=== PATIENT | female | born 1965 | race Caucasian/White ===

== ENCOUNTER 2017-01-26 14:41 | Emergency (ER) | payer BC ==
[2017-01-26 16:26] VITALS: BP 158/89; PULSE 88; RESP 16; TEMP 98.1; O2SAT 96
--- NOTE | 2017-01-26 17:43 | UCPHY ---
H & P Patient Type: New Smoking Status: Never smoked Time Seen by Provider: 01/26/17 16:58 HPI/ROS: CHIEF COMPLAINT: Left elbow and left shoulder pain HISTORY OF PRESENT ILLNESS: 51-year-old female presents emergency department complaining of left shoulder and left elbow pain after a fall 1 week ago. Patient tripped and fell onto her left elbow. She had pain and swelling in this elbow that has improved, patient reports pain in her elbow and her shoulder with range of motion. She denies numbness or tingling in her arm, no head strike, no neck pain. She denies other complaints. (Cierra Franz) Physical Exam: GEN: Awake, alert, oriented, no acute distress RESP: nl resp effort MSK: Left elbow with full extension and flexion, pronation and supination, small area of ecchymosis over medial epicondyle, tenderness to palpation to olecranon with no swelling, no fluctuance, 2+ radial pulses, sensation intact to light touch, no left wrist pain, left shoulder with decreased active forward flexion, tenderness to palpation to AC joint. SKIN: [place], warm, dry, no break in exposed skin (Cierra Franz) Constitutional: Initial Vital Signs Temperature (C) 36.7 C 01/26/17 16:20 Heart Rate 88 01/26/17 16:20 Respiratory Rate 16 01/26/17 16:20 Blood Pressure 158/89 H 01/26/17 16:20 O2 Sat (%) 96 01/26/17 16:20 O2 Delivery Mode Room Air Allergies/Adverse Reactions: No Known Allergies Allergy (Verified 08/26/13 19:42) Home Medications: Medication Instructions Recorded LISINOPRIL 07/19/10 Lantus 07/19/10 Prozac 07/19/10 MDM/Departure - MDM Diagnostics: Left elbow x-ray independently reviewed by - No fracture Left shoulder x-ray independently reviewed by - No fracture (Cierra Franz) Medications Given: Discontinued Medications Hydrocodone Bitart/Acetaminophen ([place] 5/325mg Prepack#6) 1 btl TAKEHOME EDNOW ONE Stop: 01/26/17 18:06 Last Admin: 01/26/17 18:31 Dose: 1 btl ED Course/Re-evaluation: The patient was evaluated and managed by the nurse practitioner, iCerra Franz My co-signature indicates that I have reviewed this chart and I agree with the findings and plan of care as documented. I am the secondary supervising physician. (Cathi Le) - Depart Disposition: Home, Routine, Self-Care Clinical Impression: Left elbow contusion Qualifiers: Encounter type: initial encounter Qualified Code(s): S50.02XA - Contusion of left elbow, initial encounter Sprain of left acromioclavicular joint Qualifiers: Encounter type: initial encounter Qualified Code(s): S43.52XA - Sprain of left acromioclavicular joint, initial encounter Condition: Good Instructions: Hydrocodone/Acetaminophen (By mouth), Acromioclavicular Separation (ED), Contusion in Adults (ED) Additional Instructions: Take 600 mg of ibuprofen every 8 hours with food for 5 days, wear sling for comfort, come out of sling several times a day to straighten and bend your elbow , gentle [id number] exercises with your shoulder. Follow up the orthopedist for pain that is not improving in the next 5-7 days, return sooner for any worsening symptoms, new symptoms or concerns. Referrals: TALON BERKOWITZ [Primary Care Provider] - As per Instructions Neo Wynn MD [Medical Doctor] - As per Instructions (Orthopedist on-call) - PQRS PQRS Measurement: na (Cierra Franz)
[2017-01-26] MEDS ORDERED: HYDROCOD/APAP 5/325 PREPACK#6 BTL TAKEHOME ONE (18:05)
== END 2017-01-26 18:32 | disposition home or self-care (01) ==
LOC: CED 14:41
DX: S50.02XA Contusion of left elbow, initial encounter (principal); S43.52XA Sprain of left acromioclavicular joint, initial encounter; W19.XXXA Unspecified fall, initial encounter
CPT/HCPCS: 73030-PO; 73080-PO; G0463-PO

== ENCOUNTER 2018-04-24 20:55 | Emergency (ER) | payer BC ==
--- NOTE | 2018-04-24 21:18 | EDPHY ---
H & P Stated Complaint: c/o bilateral lower leg swelling x 2 days, states swelling less today Time Seen by Provider: 04/24/18 21:13 HPI/ROS: Chief Complaint: Leg swelling HPI: 52-year-old diabetic woman presenting with 2 days of leg swelling. Patient states that Friday her legs became quite swollen. They were equal bilaterally. Swelling persisted yesterday. It is a little bit better today but is continuing. No chest pain or shortness of breath. No recent weight loss or weight gain. She called her primary care physician who told her to come to the emergency department for evaluation of her heart. She sleeps on 1 pillow at night and this is not changed for many years. No dyspnea on exertion. She says her blood sugars have been in the 120s to 150s range recently without any recent changes. No recent travel. No cough. No chest pain or palpitations. No increased thirst or urination. No heat or cold intolerance. ROS: 10 point Review of Systems is negative except as noted in the HPI. PMH: Diabetes Social History: No smoking, no alcohol, no recreational drug use Family History: non-contributory Physical Exam: Gen: Awake, Alert, No Distress HEENT: Nose: no rhinorrhea Eyes: PERRLA, EOMI Mouth: Moist mucosa Neck: Supple, no JVD Chest: nontender, lungs clear to auscultation Heart: S1, S2 normal, no murmur Abd: Soft, non-tender, no guarding Back: no CVA tenderness, no midline tenderness Ext: 2+ nonpitting edema bilaterally to the mid calf, mild bilateral tenderness. Skin: no rash Neuro: CN II-XII intact, Sensation grossly intact, Strength 5/5 in bilateral upper and lower extremities - Personal History LMP (Females 10-55): Post Menopausal Current Tetanus Diphtheria and Acellular Pertussis (TDAP): Yes Tetanus Vaccine Date: 2011 - Medical/Surgical History Hx Asthma: No Hx Chronic Respiratory Disease: No Hx Diabetes: Yes Hx Cardiac Disease: No Hx Renal Disease: No Hx Cirrhosis: No Hx Alcoholism: No Hx HIV/AIDS: No Hx Splenectomy or Spleen Trauma: No Other PMH: DM 2 - Social History Smoking Status: Never smoked Constitutional: Initial Vital Signs Temperature (C) 36.6 C 04/24/18 21:06 Heart Rate 91 04/24/18 21:06 Respiratory Rate 16 04/24/18 21:06 Blood Pressure 158/112 H 04/24/18 21:06 O2 Sat (%) 94 04/24/18 21:06 O2 Delivery Mode Room Air Allergies/Adverse Reactions: No Known Allergies Allergy (Verified 08/26/13 19:42) Home Medications: Medication Instructions Recorded Aspirin 0 mg PO 04/24/18 Furosemide [Lasix 20 MG (*)] 20 mg PO DAILY #30 tab 04/24/18 Glyburide 04/24/18 Omeprazole 0 04/24/18 Medical Decision Making - Diagnostics EKG Interpretation: ECG time 2120 p.m., sinus rhythm with a rate of 80, normal axis, normal intervals, no acute ST or T-wave changes. Impression: Normal ECG. ED Course/Re-evaluation: 52-year-old bilateral pedal edema. ECG is normal. Troponin is negative. She has a mild low albumin at 3.2. Renal function is normal. Blood sugar 210. Otherwise comprehensive metabolic panel is unremarkable. Plan will be to start her on a low-dose of Lasix every morning. Have her follow up with primary care physician in several days for further evaluation. - Data Points Laboratory Results: 04/24/18 21:29 POC Troponin I 0.00 ng/mL ng/mL (0.00-0.08) Point of Care Test Results: Chemistry 04/24/18 21:29 POC Troponin I 0.00 ng/mL ng/mL (0.00-0.08) Departure - Departure Disposition: Home, Routine, Self-Care Clinical Impression: Pedal edema Condition: Good Instructions: Leg Edema (ED) Additional Instructions: You may take start taking Lasix, 10 mg every morning. Follow up with primary care physician in 3-4 days for further evaluation. Return to the emergency department for increasing swelling, chest pain, shortness of breath, palpitations, or any other concerns. Referrals: TALON BERKOWITZ [Primary Care Provider] - As per Instructions Prescriptions: Furosemide [Lasix 20 MG (*)] 20 mg PO DAILY #30 tab
--- NOTE | 2018-04-24 21:21 | CPEKG ---
Heart Rate: 80 RR Interval: 750 P-R Interval: 160 QRSD Interval: 84 QT Interval: 396 QTC Interval: 457 P [place]: 46 QRS [place]: 37 T Wave [place]: 26 EKG Severity - NORMAL ECG - EKG Impression: SINUS RHYTHM Electronically Signed By: Eddie Deras 24-Apr-2018 21:45:09
[2018-04-24 22:08] VITALS: BP 143/82
== END 2018-04-24 22:08 | disposition home or self-care (01) ==
LOC: CED 20:55
DX: R60.0 Localized edema (principal); E11.9 Type 2 diabetes mellitus without complications; Z79.82 Long term (current) use of aspirin
CPT/HCPCS: 80053-PO; 84484-PO

== ENCOUNTER 2019-02-02 09:29 | Emergency (ER) | payer BC ==
--- NOTE | 2019-02-02 10:28 | EDPHY ---
H & P Stated Complaint: Dx with UTI last night - @ 1999 started vomiting/body aches - thinks she price Time Seen by Provider: 02/02/19 09:32 HPI/ROS: Chief Complaint: Fevers, body aches, chills, vomiting HPI: 53-year-old woman with a history of type 2 diabetes started having fevers chills and vomiting last night. She has had UTI symptoms for the last few days was diagnosed with urinary tract infection at [facility] yesterday. She started on Bactrim and ondansetron. Last night she began getting fevers and chills. She has vomited multiple he has been taking DayQuil. She has body aches and some abdominal cramping. No cough. No shortness of breath. No headache. ROS: 10 systems were reviewed and were negative except those elements noted in the HPI. PMH: Type 2 diabetes Social History: No smoking, no alcohol, no recreational drug use Family History: non-contributory Physical Exam: Gen: Awake, Alert, No Distress HEENT: Nose: no rhinorrhea Eyes: PERRLA, EOMI Mouth: Moist mucosa Neck: Supple, no JVD Chest: nontender, lungs clear to auscultation Heart: S1, S2 normal, no murmur Abd: Soft, non-tender, no guarding Back: no CVA tenderness, no midline tenderness Ext: no edema, non-tender Skin: no rash Neuro: CN II-XII intact, Sensation grossly intact, Strength 5/5 in bilateral upper and lower extremities - Personal History LMP (Females 10-55): Post Menopausal Current Tetanus Diphtheria and Acellular Pertussis (TDAP): Yes Tetanus Vaccine Date: 2011 - Medical/Surgical History Hx Asthma: No Hx Chronic Respiratory Disease: No Hx Diabetes: Yes Hx Cardiac Disease: No Hx Renal Disease: No Hx Cirrhosis: No Hx Alcoholism: No Hx HIV/AIDS: No Hx Splenectomy or Spleen Trauma: No Other PMH: DM 2 - Social History Smoking Status: Never smoked Constitutional: Initial Vital Signs Temperature (C) 37 C 02/02/19 09:40 Heart Rate 89 02/02/19 09:40 Respiratory Rate 20 02/02/19 09:40 Blood Pressure 152/97 H 02/02/19 09:40 O2 Sat (%) 97 02/02/19 09:40 O2 Delivery Mode Room Air Allergies/Adverse Reactions: No Known Allergies Allergy (Verified 08/26/13 19:42) Home Medications: Medication Instructions Recorded Aspirin 0 mg PO 04/24/18 Furosemide [Lasix 20 MG (*)] 20 mg PO DAILY #30 tab 04/24/18 Glyburide 04/24/18 Omeprazole 0 04/24/18 Hydrochlorothiazide 02/02/19 Medical Decision Making ED Course/Re-evaluation: Rapid influenza test are negative. Symptoms consistent with viral URI. She does not have any CVA tenderness or other symptoms to suggest pyelonephritis. Will discharge with supportive treatment, follow up with primary care. - Data Points Point of Care Test Results: Influenza PCR Flu Nasal Swab Collection Date 02/02/19 Flu Nasal Swab Collection Time 10:05 Influenza A Result Not Detected Influenza B Result Not Detected Departure - Departure Disposition: Home, Routine, Self-Care Clinical Impression: Viral syndrome Condition: Good Instructions: Viral Syndrome (ED) Additional Instructions: Alternate acetaminophen (1000 mg) with ibuprofen (400 mg) every 4 hours as needed for fevers, chills, aches or pain. Follow up with primary care physician in 3-4 days if symptoms are not improving. Return to the emergency department for uncontrolled vomiting, worsening fevers or chills, shortness of breath, fainting, or any other concerns. Referrals: TALON BERKOWITZ [Primary Care Provider] - As per Instructions
[2019-02-02 11:04] VITALS: BP 140/62
== END 2019-02-02 11:01 | disposition home or self-care (01) ==
LOC: CED 09:29
DX: B34.9 Viral infection, unspecified (principal)
CPT/HCPCS: 99282-ER

== ENCOUNTER 2019-04-25 22:33 | Emergency (ER) | payer BC | END 2019-04-25 23:29 | disposition home or self-care (01) | LOC: CED 22:33 ==